=== PATIENT | male | born 1995 | race Two or more races ===

== ENCOUNTER 2017-02-12 18:55 | Emergency (ER) | payer OTHER ==
[~2017-02-12] VITALS: Ht 167.6 cm; Wt 64.9 kg
[2017-02-12] MEDS ORDERED: KETOROLAC TROMETH 30 MG/ML 1ML VIAL IV ONE (22:15)
[2017-02-12 23:21] VITALS: BP 117/73
== END 2017-02-12 23:22 | disposition home or self-care (01) ==
LOC: EDBD 18:55 → ER 19:01
DX: S40.012A Contusion of left shoulder, initial encounter (principal); S09.90XA Unspecified injury of head, initial encounter; F17.210 Nicotine dependence, cigarettes, uncomplicated; Y08.89XA Assault by other specified means, initial encounter; Y93.89 Activity, other specified; Y92.89 Other specified places as the place of occurrence of the external cause; Y99.8 Other external cause status
CPT/HCPCS: 70450; 73030; 96374; 99284; J1885